=== PATIENT | female | born 1935 | race Caucasian/White ===

== ENCOUNTER 2022-11-24 16:28 | Inpatient (IN) | payer OTHER ==
[~2022-11-24] VITALS: Ht 160 cm; Wt 57.8 kg
--- NOTE | 2022-11-24 16:30 | NUR ---
Placed in room 03 . Placed on monitoring analyst, blood pressure machine and pulse oximeter. To gown for exam. Side rails up. Report given to Adeola HATCH.
[2022-11-24 16:35] VITALS: BP_SYST 146
--- NOTE | 2022-11-24 16:35 | NUR ---
RECEIVED PT FROM MAMIE LARSON. PT BIB FAMILY MEMBER FOR SOB X ONE WEEK. ASSUMED CARE.
--- NOTE | 2022-11-24 16:40 | NUR ---
DR. DENISE AT BEDSIDE TO ASSESS PT.
--- NOTE | 2022-11-24 16:45 | NUR ---
# 20 gauge angiocath placed to LAC. Use of asceptic technique. Opsite placed over site. Blood return noted. Blood for lab drawn from site. Flushed with 10 cc of normal saline. No evidence of infiltration noted. Patient tolerated well.
[2022-11-24] MEDS ORDERED: LIP20 PO (17:14)
[2022-11-24] MEDS ORDERED: CLOP75TA32 PO (17:14)
[2022-11-24] MEDS ORDERED: ASPI-1155 PO (17:14)
[2022-11-24] MEDS ORDERED: CLON0.5T4 PO (17:14)
--- NOTE | 2022-11-24 17:14 | NUR ---
Medication reconciliation completed with information provided by patient. Any prior medication reconciliation on file was reviewed and corrected.
[2022-11-24 17:41] LABS: BASOPHILS # (AUTO) 0.1 K/uL (0.0-0.2); BASOPHILS % (AUTO) 1.3 % (0.0-2.0); EOSINOPHILS # (AUTO) 0.1 K/uL (0.0-0.4); EOSINOPHILS % (AUTO) 1.1 % (0.0-4.0); LYMPHOCYTES # (AUTO) 1.7 K/uL (1.0-5.5); LYMPHOCYTES % (AUTO) 30.7 % (20.5-51.5); MEAN CORPUSCULAR HEMOGLOBIN 22 pg (27-31); MEAN CORPUSCULAR HGB CONC 31 % (32-36); MEAN CORPUSCULAR VOLUME 70 fL (79.0-98.0); MONOCYTES # (AUTO) 0.6 K/uL (0.0-1.0); MONOCYTES % (AUTO) 11.2 % (1.7-9.3); NEUTROPHILS # (AUTO) 3.1 K/uL (1.8-7.7); NEUTROPHILS % (AUTO) 55.7 % (40.0-70.0); PLATELET COUNT (AUTO) 252 K/uL (130-430); RED BLOOD CELL COUNT(AUTO) 3.06 MIL/uL (4.2-6.2); RED CELL DISTRIBUTION WIDTH 17.2 % (9.0-15.0); WHITE BLOOD COUNT (AUTO) 5.6 K/uL (4.8-10.8)
[2022-11-24 17:51] LABS: HEMATOCRIT 21.4 % (36-48); HEMOGLOBIN 6.6 g/dL (12.0-16.0)
--- NOTE | 2022-11-24 18:00 | NUR ---
FLU AND COVID SAMPLES OBTAINED AND TAKEN TO LAB
[2022-11-24 18:02] LABS: ANION GAP 11 (5-15); CALCIUM 8.7 mg/dL (8.4-11.0); CHLORIDE 104 mmol/L (98-107); CREATININE 1.29 mg/dL (0.55-1.30); GLUCOSE 114 mg/dL (74-106); UREA NITROGEN, BLOOD 38 mg/dL (8-21)
[2022-11-24 18:11] LABS: ALANINE AMINOTRANSFERASE 21 U/L (12-78); ALBUMIN 3.5 g/dL (3.4-4.8); ASPARTATE AMINOTRANSFERASE 15 U/L (10-37); TOTAL BILIRUBIN 0.3 mg/dL (0.0-1.0)
--- NOTE | 2022-11-24 18:45 | NUR ---
DR. DENISE AT BEDSIDE TO DISCUSS POC.
[2022-11-24] MEDS ORDERED: DOCUSATE SODIUM 100 MG/10 ML UDC PO PRN (19:00)
[2022-11-24] MEDS ORDERED: HYDROcodone/ACETAMIN 7.5-325 MG TAB PO PRN (19:00)
[2022-11-24] MEDS ORDERED: ZOLPIDEM TARTRATE 5 MG TABLET PO PRN (19:00)
[2022-11-24] MEDS ORDERED: ONDANSETRON HCL 4 MG/2 ML VIAL IVP PRN (19:00)
[2022-11-24] MEDS ORDERED: MORPHINE 2 MG/ML INJ. SYRINGE IVP PRN (19:00)
[2022-11-24] MEDS ORDERED: ACETAMINOPHEN 500 MG TABLET PO PRN (19:00)
[2022-11-24] MEDS ORDERED: guaiFENesin/DEXTROMETHORPHAN 10 ML UDC PO PRN (19:00)
--- NOTE | 2022-11-24 19:24 | NUR ---
ENDORSED PT TO MAMIE RAMOS. ALL QUESTIONS AND CONCERNS ADDRESSED.
--- NOTE | 2022-11-24 19:29 | NUR ---
CONSULTATION PAGED/CALLED Reason for Consultation: GI BLEED Person Who was Notified:DULCE Consulting Physician: JENNIFER Tape Stringer Specialty: GI Ordering Physician: FILIBERTO VAUGHAN
[2022-11-24 19:43] LABS: PROTHROMBIN TIME 10.8 SECS (9.5-12.5)
[2022-11-24 19:52] LABS: FREE T4 (FREE THYROXINE) 0.9 ng/dL (0.6-1.6); PHOSPHORUS 3.8 mg/dL (2.7-4.5); THYROID STIMULATING HORMONE 3.68 uIu/mL (0.34-4.82)
[2022-11-24] MEDS ORDERED: PANTOPRAZOLE SODIUM 40 MG/VIAL (PROTONIX) IVP ONE (20:15)
--- NOTE | 2022-11-24 20:45 | NUR ---
FIRST UNIT OF PRBCSTARTED PER ORDERS.
--- NOTE | 2022-11-24 20:47 | NUR ---
Admit bed requested Patient will be admitted to care of FILIBERTO Ruth. Admitted to TELE unit. Diagnosis GI BLEED Inpatient (Yes or No) Y Observation (Yes or No) N Orientation concerns or request close to nursing station (Yes or No) N Covid Status NA On vent or bipap N Isolation requirements N Needs a sitter N From Home (Yes or if No enter name of facility) Y Requires Dialysis (Yes or No) N Med Rec Completed (Yes of No) Y
--- NOTE | 2022-11-24 22:30 | NUR ---
Patient will be admitted to care of DR VAUGHAN. Admitted to TELE unit. Will go to room 130A. Belongings list completed. Complete and up to date summary report printed. SBAR report to be given at bedside with opportunity for questions.
[2022-11-24 22:50] VITALS: BP_SYST 149
--- NOTE | 2022-11-24 22:50 | NUR ---
received pt report from ER,
[2022-11-24 23:41] VITALS: BP_SYST 149
--- NOTE | 2022-11-24 23:41 | NUR ---
End transfusion of 1st unit VSS
[2022-11-25 03:09] VITALS: BP_SYST 149
[2022-11-25 05:56] VITALS: BP_SYST 149
--- NOTE | 2022-11-25 06:55 | NUR ---
pt refused insulin Addendum: 11/25/22 at 0703 by [facility], MAMIE RN wrong patient
--- NOTE | 2022-11-25 07:20 | NUR ---
RECEIVED PT IN BED, PT IS AAO, DENIES PAIN VITALS TAKEN, NO FEVER. C/O OF STILL FEELING WEAK, PT IS A LITTLE WOBBLY. PT ASSISTED TO BACKROOM,
[2022-11-25 07:53] VITALS: BP_SYST 154
--- NOTE | 2022-11-25 08:12 | NUR ---
PRBC 1 unit transfusion start at 0254 and ended at 0556 tolerated well, VSS 0239: T:96.9, P: 77 RR:20 BP:158/78 0309: T: 94.4 P: 76 RR: 18 BP:148/68 0556: T 96.5 P: 75 RR 19 BP 149/80 no reactions
[2022-11-25] MEDS: D5NS 1,000 ML IV SCH ×3 (08:14→23:42)
--- NOTE | 2022-11-25 08:31 | NUR ---
PT GIVEN AM MEDS WITH SIPS OF WATER.
[2022-11-25] MEDS ORDERED: POTASSIUM CHLORIDE 20 MEQ TAB.PRT.SR PO PRN (09:00)
[2022-11-25] MEDS ORDERED: PANTOPRAZOLE SODIUM 40 MG TAB PO SCH (09:00)
[2022-11-25 09:06] LABS: BASOPHILS % (AUTO) 0.5 % (0.0-2.0); EOSINOPHILS % (AUTO) 0.3 % (0.0-4.0); HEMATOCRIT 32.5 % (36-48); HEMOGLOBIN 10.3 g/dL (12.0-16.0); LYMPHOCYTES # (AUTO) 1.1 K/uL (1.0-5.5); LYMPHOCYTES % (AUTO) 13.2 % (20.5-51.5); MEAN CORPUSCULAR HEMOGLOBIN 24 pg (27-31); MEAN CORPUSCULAR HGB CONC 32 % (32-36); MEAN CORPUSCULAR VOLUME 74 fL (79.0-98.0); MONOCYTES # (AUTO) 0.6 K/uL (0.0-1.0); MONOCYTES % (AUTO) 7.3 % (1.7-9.3); NEUTROPHILS # (AUTO) 6.4 K/uL (1.8-7.7); PLATELET COUNT (AUTO) 220 K/uL (130-430); RED BLOOD CELL COUNT(AUTO) 4.38 MIL/uL (4.2-6.2); RED CELL DISTRIBUTION WIDTH 18.5 % (9.0-15.0); WHITE BLOOD COUNT (AUTO) 8.1 K/uL (4.8-10.8)
[2022-11-25 09:11] LABS: NEUTROPHILS % (AUTO) 78.7 % (40.0-70.0)
[2022-11-25 09:17] LABS: ANION GAP 10 (5-15); CALCIUM 8.5 mg/dL (8.4-11.0); CHLORIDE 106 mmol/L (98-107); CREATININE 0.95 mg/dL (0.55-1.30); GLUCOSE 102 mg/dL (74-106); UREA NITROGEN, BLOOD 22 mg/dL (8-21)
--- NOTE | 2022-11-25 12:41 | NUR ---
SPOKE WITH DR VAUGHAN RE PT AND PT'S FAMILY WANTING US TO FEED THE PT. SAID NO UNTIL GI DOCTOR SEE THE PT. PT AND HER FAMILY AT BEDSIDE INFORMED
--- NOTE | 2022-11-25 14:15 | NUR ---
PT PROVIDED WITH JELLO/WATER AND APPLE JUICE.
[2022-11-25 16:00] VITALS: BP_SYST 138
[2022-11-25 19:00] VITALS: BP_SYST 135
--- NOTE | 2022-11-25 19:23 | NUR ---
PT ENDORSED TO NIGHT MAMIE KING. PT IS AWARE OF EGD IN AM. PT SIGNED CONSENT.
[2022-11-25 20:00] VITALS: BP_SYST 135
[2022-11-25] MEDS: PANTOPRAZOLE SODIUM 40 MG/VIAL (PROTONIX) IVP SCH (21:20)
[2022-11-25] MEDS ORDERED: ZOLPIDEM TARTRATE 5 MG TABLET PO PRN (23:30)
[2022-11-25] MEDS ORDERED: ZOLPIDEM TARTRATE 5 MG TABLET ONE (23:40)
[2022-11-26] VITALS: BP_SYST 132
[2022-11-26 04:42] LABS: BASOPHILS # (AUTO) 0.1 K/uL (0.0-0.2); BASOPHILS % (AUTO) 0.8 % (0.0-2.0); EOSINOPHILS # (AUTO) 0.1 K/uL (0.0-0.4); EOSINOPHILS % (AUTO) 1.2 % (0.0-4.0); HEMATOCRIT 32.5 % (36-48); HEMOGLOBIN 10.3 g/dL (12.0-16.0); LYMPHOCYTES # (AUTO) 1.3 K/uL (1.0-5.5); LYMPHOCYTES % (AUTO) 18.1 % (20.5-51.5); MEAN CORPUSCULAR HEMOGLOBIN 24 pg (27-31); MEAN CORPUSCULAR HGB CONC 32 % (32-36); MEAN CORPUSCULAR VOLUME 74 fL (79.0-98.0); MONOCYTES # (AUTO) 0.7 K/uL (0.0-1.0); MONOCYTES % (AUTO) 10.5 % (1.7-9.3); NEUTROPHILS # (AUTO) 4.9 K/uL (1.8-7.7); NEUTROPHILS % (AUTO) 69.4 % (40.0-70.0); PLATELET COUNT (AUTO) 218 K/uL (130-430); RED BLOOD CELL COUNT(AUTO) 4.37 MIL/uL (4.2-6.2); RED CELL DISTRIBUTION WIDTH 18.5 % (9.0-15.0); WHITE BLOOD COUNT (AUTO) 7.1 K/uL (4.8-10.8)
[2022-11-26 05:08] LABS: ANION GAP 7 (5-15); CALCIUM 8.3 mg/dL (8.4-11.0); CHLORIDE 107 mmol/L (98-107); CREATININE 0.85 mg/dL (0.55-1.30); GLUCOSE 110 mg/dL (74-106); UREA NITROGEN, BLOOD 13 mg/dL (8-21)
[2022-11-26 05:11] LABS: INR 1.1 (0.8-1.2); PROTHROMBIN TIME 11.2 SECS (9.5-12.5)
[2022-11-26 07:30] VITALS: BP_SYST 145
[2022-11-26 07:50] LABS: TOTAL IRON BIND. CAPACITY 355 ug/dL (250-450)
[2022-11-26] MEDS ORDERED: SIMETHICONE 40 MG/0.6 ML ML ONE (07:56)
[2022-11-26] MEDS ORDERED: BENZOCAINE 20% 0.5mL UD SPRAY MM ONE (07:56)
[2022-11-26] MEDS ORDERED: MIDAZOLAM HCL 5 MG/5 ML VIAL ONE (07:57)
[2022-11-26] MEDS ORDERED: MEPERIDINE HCL/PF 25 MG/ML DISP.SYRIN ONE (07:59)
[2022-11-26] MEDS ORDERED: fentaNYL CITRATE/PF 100 MCG/2 ML AMP ONE (08:13)
[2022-11-26] MEDS: PANTOPRAZOLE SODIUM 40 MG/VIAL (PROTONIX) IVP SCH (09:32)
[2022-11-26] MEDS ORDERED: PRO40 PO (10:19)
[2022-11-26] MEDS ORDERED: FERR-31 PO (10:20)
[2022-11-26 10:44] VITALS: BP_SYST 152
[2022-11-26 11:00] VITALS: BP_SYST 152
--- NOTE | 2022-11-26 13:31 | NUR ---
D/C Patient Patient given medication reconciliation form and D/C instructions. Exit Care provided. Patient verbalized understanding. MD discussed with patient the results and treatment provided. Ambulatory with steady gait for discharge to home. Patient in stable condition, ID band removed. IV catheter removed, intact and dressing applied, no active bleeding. ERx of given. Patient educated on pain management. All belongings sent with patient.
[2022-11-27 09:07] LABS: FOLATE (FOLIC ACID) 18.5 ng/mL (>3.0)
== END 2022-11-26 13:31 | disposition home or self-care (01) | DRG 377 ==
LOC: SED 16:28 → STU 18:59 → SMU 11-25 22:20
PROVIDERS: ADMIT Family Medicine; ATTEND Family Medicine
PROC: 30233N1 Transfusion of Nonautologous Red Blood Cells into Peripheral Vein, Percutaneous Approach (ICD-10-PCS; 2022-11-24)
PROC: 0DB78ZX Excision of Stomach, Pylorus, Via Natural or Artificial Opening Endoscopic, Diagnostic (ICD-10-PCS; principal; 2022-11-26 08:00)
DX: K29.81 Duodenitis with bleeding (principal); G93.41 Metabolic encephalopathy; D62 Acute posthemorrhagic anemia; K29.71 Gastritis, unspecified, with bleeding; Z20.822 Contact with and (suspected) exposure to COVID-19; I25.10 Atherosclerotic heart disease of native coronary artery without angina pectoris; E78.5 Hyperlipidemia, unspecified; Z88.2 Allergy status to sulfonamides; I25.2 Old myocardial infarction; Z79.82 Long term (current) use of aspirin; Z79.899 Other long term (current) drug therapy
CPT/HCPCS: 36415; 71045; 80048; 80053; 80061; 82150; 82607; 82728; 82746; 83037; 83540; 83550; 83605; 83690; 83735; 83880; 84100; 84439; 84443; 84484; 85025; 85379; 85610-TC; 85730-TC; 86886; 86900; 86901; 86920; 87081; 88305; 88312; 88313; 93005; 96374; 99291; C9113; G0378; J2175; J2250; J3010; P9021